=== PATIENT | female | born 1955 | race Caucasian/White ===

== ENCOUNTER 2019-01-12 11:08 | Emergency (ER) | payer BC ==
[2019-01-12 11:29] VITALS: BP 138/71
--- NOTE | 2019-01-12 12:09 | UC ---
Ear Complaint HPI - HPI Summary HPI Summary: L ear pain x 7 days. Was in pool but did not go under. Pain w/ chewing on that side. denies tooth pain, change in hearing. - History of Current Complaint Chief Complaint: UCEar Stated Complaint: LEFT EAR COMPLAINT Time Seen by Provider: 01/12/19 11:43 Hx Obtained From: Patient Pain Intensity: 3 Pain Scale Used: 0-10 Numeric Aggravating Factors: Other - chewing Alleviating Factors: Nothing - Allergies/Home Medications Allergies/Adverse Reactions: Allergies Allergy/AdvReac Type Severity Reaction Status Date / Time No Known Allergies Allergy Verified 01/12/19 11:29 Home Medications: Home Medications ALPRAZolam TAB* [Xanax TAB*] 0.25 mg PO DAILY PRN 01/12/19 [History Confirmed ] Cholecalciferol TAB* [Vitamin D TAB*] 50,000 unit PO WEEKLY 01/12/19 [History Confirmed 01/12/19] Levothyroxine TAB* [Synthroid TAB*] 100 mcg PO DAILY 01/12/19 [History Confirmed 01/12/19] PMH/Surg Hx/FS Hx/Imm Hx Previously Healthy: Yes Endocrine History: Thyroid Disease - Surgical History Surgical History: None - Family History Known Family History: Positive: Non-Contributory - Social History Alcohol Use: None Substance Use Type: None Smoking Status (MU): Never Smoked Tobacco Review of Systems All Other Systems Reviewed And Are Negative: Yes Constitutional: Negative: Fever Skin: Negative: Rash ENT: Positive: Ear Ache. Negative: Sore Throat, Sinus Congestion Respiratory: Positive: Negative Cardiovascular: Positive: Negative Neurological: Negative: Headache Physical Exam Triage Information Reviewed: Yes Appearance: Well-Appearing Vital Signs: Initial Vital Signs Temp 97.3 F 01/12/19 11:25 Pulse 94 01/12/19 11:25 Resp 16 01/12/19 11:25 BP 138/71 01/12/19 11:25 Pulse Ox 100 01/12/19 11:25 Vital Signs Reviewed: Yes ENT: Positive: Pharynx normal, TMs normal, Other - L canal has inflammation and pain w/ otoscope insertion Dental Exam: Normal Neck: Positive: Other: - lymphadenopathy but nontender, small singular preauricular. Neurological: Positive: Alert Skin: Negative: Rashes Ear Complaint Course/Dx - Course Course Of Treatment: L otitis externa, acute. ON exam there was pain w/ otoscope insertion and debris in canal, TM unremarkbl.e vitals good. Of note on exam there was preaurical lymphadenopathy, nontender, singular small. This could be from current illness but to get rodriguez evaluation have asked her to get more testing/evaluation with her pcp. - Differential Dx/Diagnosis Provider Diagnosis: Otitis externa, Preauricular adenopathy Discharge - Sign-Out/Discharge Documenting (check all that apply): Patient Departure All imaging exams completed and their final reports reviewed: No Studies - Discharge Plan Condition: Good Disposition: HOME Prescriptions: Ciproflox/Dexameth OTIC.SUSP* [Ciprodex OTIC.SUSP*] 1 drop LEFT EAR BID 7 Days # 1 btl Patient Education Materials: Otitis Externa (ED) Referrals: No Primary Care Phys,NOPCP [Primary Care Provider] - Additional Instructions: You have a small lymph node by your ear that appears to be swollen which could be from the ear infection but you should follow up with your pcp to get this evaluated further. - Billing Disposition and Condition Condition: GOOD Disposition: Home
== END 2019-01-12 12:11 | disposition home or self-care (01) ==
LOC: UCCORT 11:08
DX: H60.92 Unspecified otitis externa, left ear (principal); R59.9 Enlarged lymph nodes, unspecified; E07.9 Disorder of thyroid, unspecified
CPT/HCPCS: 99202; G0463